=== PATIENT | male | born 1995 | race Two or more races ===

== ENCOUNTER 2016-11-28 22:39 | Emergency (ER) | payer SELFPAY ==
[~2016-11-28] VITALS: Ht 190.5 cm; Wt 74.8 kg
--- NOTE | 2016-11-28 23:12 | Emergency Room Report ---
History of Present Illness General Chief Complaint: Chest Pain Source: Patient Present Illness HPI 21YOM walk-in with palpitations and chest pain since last night. 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 Denies other drug use Denies other PMHx Never had these symptoms before Allergies: Coded Allergies: No Known Allergies (Unverified , 11/28/16) Patient History Past Medical History: none Past Surgical History: none Social History: Reports: drug use, smoking Immunizations: UTD Reviewed Nursing Documentation: PMH: Agreed, PSxH: Agreed Nursing Documentation-PMH Past Medical History: No Stated History Review of Systems All Other Systems: negative except mentioned in HPI Physical Exam Vital Signs Date Time Temp Pulse Resp B/P Pulse Ox O2 Delivery O2 Flow Rate FiO2 11/28/16 22:46 98.1 61 20 133/77 99 Room Air Sp02 EP Interpretation: reviewed, normal General Appearance: normal inspection, well appearing, no apparent distress, alert, GCS 15, non-toxic Head: normocephalic, atraumatic Eyes: bilateral eye EOMI, bilateral eye PERRL ENT: normal ENT inspection, hearing grossly normal, normal voice Neck: normal inspection, full range of motion, supple, no bony tend Respiratory: normal inspection, lungs clear, normal breath sounds, no respiratory distress, no retraction, no wheezing Cardiovascular #1: regular rate, rhythm, no edema Gastrointestinal: normal inspection, normal bowel sounds, non tender, soft, no guarding, no hernia Genitourinary: no CVA tenderness Musculoskeletal: normal inspection, back normal, normal range of motion, Roma' s Sign negative Neurologic: normal inspection, alert, oriented x3, responsive, manufacturing engineer supervisor III-XII nml as tested, motor strength/tone normal, speech normal Psychiatric: normal inspection, judgement/insight normal, mood/affect normal Skin: normal inspection, normal color, no rash Lymphatic: normal inspection Medical Decision Making Diagnostic Impression: Primary Impression: Chest pain Qualified Codes: R07.9 - Chest pain, unspecified Additional Impression: Palpitations ER Course Chest pain, palpitations - VSS. Afebrile - ECG sinus arrythmia, no ischemia - No leuks. H&h stable. Troponin 0. - utox + for MJ - No metabolic abnormalities CXR normal - Unlikely ACS given no CAD risk factors - Unlikely PE given not tachycardic/tachypnic or hypoxic. No other PE risk factors. No leg swelling - ?related to marijuana abuse Advised STOPPING smoking PMD followup Return for worsening symptoms EKG Diagnostic Results Rate: normal Rhythm: NSR ST Segments: no acute changes ASA given to the pt in ED: No Rhythm Strip Diag. Results EP Interpretation: yes Rate: 56 Rhythm: NSR, no PVC's, no ectopy Chest X-Ray Diagnostic Results Chest X-Ray Diagnostic Results : Chest X-Ray Ordered: Yes # of Views/Limited/Complete: 1 View Indication: Chest Pain EP Interpretation: Yes Interpretation: no consolidation Impression: No acute disease Interpreting ER Provider: Electronically signed by Dr Dejesus Last Vital Signs Date Time Temp Pulse Resp B/P Pulse Ox O2 Delivery O2 Flow Rate FiO2 11/28/16 22:46 98.1 61 20 133/77 99 Room Air Status: improved Disposition: HOME, SELF-CARE NICOLE DEJESUS M.D. Nov 28, 2016 23:12
[2016-11-28 23:49] LABS: BASOPHILS % (AUTO) 1.3 % (0.0-2.0); LYMPHOCYTES % (AUTO) 28.2 % (20.0-45.0); MEAN CORPUSCULAR HEMOGLOBIN 33.6 PG (27.0-31.0); MEAN CORPUSCULAR HGB CONC 35.6 G/DL (32.0-36.0); MEAN CORPUSCULAR VOLUME 94 FL (80-99); MEAN PLATELET VOLUME 7.5 FL (6.5-10.1); MONOCYTES % (AUTO) 9.1 % (1.0-10.0); NEUTROPHILS % (AUTO) 60.3 % (45.0-75.0); PLATELET COUNT 244 K/UL (150-450); RED BLOOD COUNT 4.87 M/UL (4.70-6.10); RED CELL DISTRIBUTION WIDTH 10.7 % (11.6-14.8); WHITE BLOOD COUNT 7.2 K/UL (4.8-10.8)
[2016-11-29 00:13] LABS: TROPONIN I < 0.30 ng/mL (<=0.30)
[2016-11-29 00:17] LABS: ALANINE AMINOTRANSFERASE 10 U/L (3-41); ANION GAP 15 (5-15); ASPARTATE AMINO TRANSFERASE 14 U/L (5-40); CALCIUM 9.4 mg/dL (8.6-10.2); CARBON DIOXIDE 23 mEQ/L (20-30); CHLORIDE 98 mEQ/L (98-107); CREATININE 0.9 mg/dL (0.7-1.2); GLOMERULAR FILTRATION RATE > 60 mL/min (>60); HEMOLYSIS 9; POTASSIUM 3.6 mEQ/L (3.4-4.9); SODIUM 136 mEQ/L (135-145); TOTAL PROTEIN 7.2 g/dL (6.6-8.7)
[2016-11-29 01:16] VITALS: BP_SYST 128; BP_SYST 133; BP_DIAS 77; BP_DIAS 80
--- NOTE | 2016-11-29 09:57 | Diagnostic Imaging Report ---
Indication: Chest pain Technique: One view of the chest Comparison: none Findings: Questionable small fibronodular opacities in the bilateral lung apices. Lungs and pleural spaces otherwise clear. Heart size is normal. Impression: Questionable post inflammatory fibronodular opacities in the bilateral lung apices. No acute process. This agrees with the preliminary interpretation provided by the emergency room physician
--- NOTE | 2016-12-02 13:19 | Cardiology Report ---
APPROVED REPORT EKG Measurement Heart [id number] Sinus bradycardia with sinus arrhythmia Otherwise normal ECG
== END 2016-11-29 01:23 | disposition home or self-care (01) ==
LOC: EMR 23:39
DX: R07.9 Chest pain, unspecified (principal); R00.2 Palpitations; F17.200 Nicotine dependence, unspecified, uncomplicated; F19.10 Other psychoactive substance abuse, uncomplicated
CPT/HCPCS: 36415; 71010; 80053; 80300; 82550; 82553; 84484; 85025; 93005; 99283

== ENCOUNTER 2017-02-16 14:13 | Emergency (ER) | payer OTHER ==
[~2017-02-16] VITALS: Ht 193 cm; Wt 75.3 kg
[2017-02-16] MEDS ORDERED: IBUPROFEN600 MG ORAL (15:18)
[2017-02-16 15:29] VITALS: BP 122/73
[2017-02-16 15:32] VITALS: BP 122/73
--- NOTE | 2017-02-16 15:51 | Diagnostic Imaging Report ---
Clinical Indication:Left wrist pain Technique: 3 views of the left wrist Comparison: None Findings: No acute fractures. No dislocations. Joint spaces are preserved Impression: Negative This agrees with the preliminary interpretation provided by the emergency room physician
--- NOTE | 2017-02-16 16:06 | Emergency Room Report ---
History of Present Illness General Chief Complaint: Pain Source: Patient Present Illness HPI The patient is a 21-year-old male presenting for left wrist pain. He states the pain began approximately 1 month prior without any known injury. Pain has been gradually increasing. It is currently a 3/10 sharp sensation. Does not radiate from the left wrist. Worse with movement. He states that he does a lot of heavy lifting at work which makes it worse. Pain decreases when he is able to rest. He denies any other symptoms Allergies: Coded Allergies: No Known Allergies (Unverified , 11/28/16) Patient History Past Medical History: see triage record Pertinent Family History: none Reviewed Nursing Documentation: PMH: Agreed, PSxH: Agreed Nursing Documentation-PMH Past Medical History: No Stated History Review of Systems All Other Systems: negative except mentioned in HPI Physical Exam Vital Signs Date Time Temp Pulse Resp B/P (MAP) Pulse Ox O2 Delivery O2 Flow Rate FiO2 02/16/17 14:33 98.2 63 16 122/73 98 Room Air Sp02 EP Interpretation: reviewed, normal General Appearance: no apparent distress, alert, GCS 15, non-toxic Head: normocephalic, atraumatic Eyes: bilateral eye normal inspection, bilateral eye PERRL ENT: hearing grossly normal, normal pharynx, no angioedema, normal voice Musculoskeletal: normal inspection, normal range of motion, tender - TTP over the L volar surface of wrist Neurologic: alert, oriented x3, responsive, motor strength/tone normal, sensory intact, speech normal Psychiatric: judgement/insight normal, memory normal, mood/affect normal, no suicidal/homicidal ideation Skin: normal color, no rash, warm/dry, well hydrated Lymphatic: no adenopathy Procedures Splinting Splinting : Consent: Verbal Location: L wrist Pre-Made Type: metal Splint: volar Pre-Proc Neuro Vasc Exam: normal Post-Proc Neuro Vasc Exam: normal Patient Tolerated: Well Complications: None Medical Decision Making PA Attestation Dr. Gotti is my supervising physician. Patient management was discussed with my supervising physician Diagnostic Impression: Primary Impression: Sprain of wrist, left Qualified Codes: S63.502A - Unspecified sprain of left wrist, initial encounter ER Course The patient is a 21-year-old male presenting for left wrist pain Ddx considered include but not limited to sprain/strain, fracture, contusion PE: NAD Left wrist: There is tenderness to palpation over the volar surface. No obvious deformity. No edema. Full active range of motion. X-ray of the left wrist is unremarkable A volar splint is placed and the patient is given information for [facility]. He will follow up with primary doctor. ER precautions given Other X-Ray Diagnostic Results Other X-Ray Diagnostic Results : X-Ray ordered: L wrist # of Views/Limited Vs Complete: 3 View Indication: Pain EP Interpretation: Yes Interpretation: no dislocation, no soft tissue swelling, no fractures Impression: No acute disease Electronically Signed by: TAYO Brady Scribe Text I have reviewed the xray with my supervising physician and interpretation is that there are no fractures, dislocations or soft tissue swelling. Last Vital Signs Date Time Temp Pulse Resp B/P (MAP) Pulse Ox O2 Delivery O2 Flow Rate FiO2 02/16/17 15:32 98.2 69 16 122/73 98 Room Air Status: improved Disposition: HOME, SELF-CARE Condition: Improved Scripts Ibuprofen* (MOTRIN*) 600 Mg Tablet 600 MG ORAL Q8H Y for For Pain, #30 TAB 0 Refills Prov: FERNANDA WOODS 02/16/17 Patient Instructions: Wrist Sprain Additional Instructions: I discussed my findings with the patient. All questions and concerns have been answered. Treatment and medication compliance have been addressed. I advised the patient that they need to follow up with PMD in 3-5 days. Return to ED if pain remains or worsens, numbness or tingling occurs, new rash is noticed, fever is noticed, or if needed for any reason. Patient verbalized understanding of discharge instructions. FERNANDA WOODS Feb 16, 2017 16:05
== END 2017-02-16 15:33 | disposition home or self-care (01) ==
LOC: EMR 15:09
DX: S63.502A Unspecified sprain of left wrist, initial encounter (principal); X50.0XXA Overexertion from strenuous movement or load, initial encounter; Y92.89 Other specified places as the place of occurrence of the external cause
CPT/HCPCS: 99283